=== PATIENT | female | born 1970 | race Caucasian/White ===

== ENCOUNTER → 2018-10-26 | Outpatient (CLI) | payer OTHER | LOC: BMCIMAGING 07:10 | PROVIDERS: ATTEND Family Medicine | DX: Z12.31 Encounter for screening mammogram for malignant neoplasm of breast (principal) ==

== ENCOUNTER → 2018-11-01 | Outpatient (CLI) | payer OTHER | LOC: BRMIMAGING 13:47 | PROVIDERS: ATTEND Midwife | DX: R92.2 Inconclusive mammogram (principal) ==